=== PATIENT | female | born 1960 | race Caucasian/White ===

== ENCOUNTER 2020-12-14 11:26 | Emergency (ER) | payer BC, SELFPAY ==
[2020-12-14 11:27] VITALS: BP 141/88; PULSE 85; RESP 16; TEMP 36.1; O2SAT 97; BMI 23.6
--- NOTE | 2020-12-14 11:48 | CT_ITS ---
STUDY: CT ABDOMEN AND PELVIS WITHOUT CONTRAST REASON FOR EXAM: Female, 60 years old. LT FLANK PAIN since Monday. N/v RADIATION DOSAGE (If Supplied By Facility): CTDIvol = ( 6.29 ) mGy, DLP = ( 336.53 ) mGycm TECHNIQUE: Transaxial images were obtained from the dome of the diaphragm to the symphysis pubis without oral contrast, and without intravenous contrast. Sagittal and coronal images were reconstructed. Individualized dose optimization techniques were used for this CT. COMPARISON: None. FINDINGS: Minimal degree of bibasilar atelectasis. The visualized portions of the heart are within normal limits. There is a 1.3 cm x 0.8 cm well-defined hypodensity in the anterior aspect of the right lobe of the liver in the region of the dome of the liver. The patient is status post cholecystectomy. Normal spleen. Normal pancreas. Normal bilateral adrenal glands. Normal right kidney. 3 mm calculus in the upper pole of the left kidney. Mild degree of left hydronephrosis and hydroureter due to a 4.3 mm calculus in the distal portion of the left ureter just proximal to the ureterovesical junction. There is a small hiatal hernia. Normal small intestine. Normal colon. The appendix is visualized and appears normal. Normal abdominal aorta. Normal inferior vena cava. Normal retroperitoneum. Normal urinary bladder. Normal abdominal wall. Normal osseous structures. CT/Abdomen/Pelvis without Cont IMPRESSION: Mild left hydronephrosis and hydroureter due to a 4.3 mm calculus in the distal portion of the left ureter just proximal to the ureterovesical junction. 1.3 cm x 0.8 some well-defined hypodensity in the anterior aspect of the right lobe of the liver in the region of the dome. Electronically Signed: Abram Manrique MD at 13:07 EST , Service support ,
[2020-12-14] MEDS: 0.9% Normal Saline 1,000 ML 1000 ML IV (12:06)
--- NOTE | 2020-12-14 12:19 | ED.DCSUM_ITS ---
- ER Visit Summary Date of Service: 12/14/20 Chief Complaint: Left flank pain History of Present Illness: The patient is a 60 F who presents with left flank pain that has been getting worse over the past 3 days. Patient states it has been waxing and waning. Patient states it became worse again today. Patient started having some nausea and vomiting today. Patient denies any hematemesis or coffee-ground emesis. Patient denies any melena or hematochezia. Patient describes her pain as aching and throbbing. Patient states it is localized to the left flank area. Patient denies any dysuria or hematuria. Patient admits to subjective chills but denies any fevers. Physical Examination: Vital signs are stable. Patient is afebrile. Patient is in no acute distress. Oral mucosa is pink and moist. Neck is supple. Trachea is midline. There is no JVD. Heart was regular rate and rhythm. Lungs are clear and equal bilateral. Abdomen is soft. Bowel sounds are normal. There is some left CVA tenderness. There is no anterior abdominal tenderness. There is no rebound or guarding noted. Cranial nerves II through XII are intact. There are no focal motor or sensory deficits noted. Extremities are intact. There is no calf tenderness or edema. Test Results: CBC and comprehensive metabolic profile were within normal limits. Urinalysis shows leukocyte esterase of 100 and occult blood of 250. There were 5-10 white blood cells and 50-[address] scan of the abdomen and pelvis was obtained. There is a 4.3 mm calculus in the left distal ureter. There is some hydronephrosis and hydroureter. This was interpreted by the radiologist and reviewed by myself. Emergency Department Course and Treatment: Patient was given IV fluids. Patient is feeling better on reevaluation. Patient was given a prescription for a short course of Mchenry to take as needed. Patient was instructed to follow-up with her primary care physician in 5 to 7 days. Patient understood and was agreeable with the plan. All questions were answered. Disposition: Discharge home Impression: Left distal ureteral calculus This note was generated with [email or web address] software. It may contain incorrect words, spelling, and punctuation that were not noted in review of the chart prior to signing ED Disposition - Plan for ED Patient: Disposition: Home or Assisted Living Diagnosis: Calculus of distal left ureter Instructions: ED Kidney Stone w/ Colic Prescriptions: Hydrocodone Bitart/Apap 5-325 [Mchenry 5MG-325MG] 1 tab PO Q6H PRN PRN 3 Days #10 tab PRN Reason: Pain Prescription Printed Referrals: Pieter Landry III, MD [Primary Care Provider] - 3-5 Days
[2020-12-14 12:20] LABS: Absolute Lymphocyte Count 0.66 X10^3/uL (0.83-4.51); Absolute Neutrophil Count 9.9 X10^3/uL (2.0-7.7); Basophil# 0.03 X10^3/uL; Basophil% 0.3 % (0-1); Eosinophil# 0.01 X10^3/uL; Eosinophils% 0.1 % (0-5); Hematocrit 44.7 % (37-47); Hemoglobin 14.7 g/dL (12.0-15.0); Lymphocyte # 0.66 X10^3/ul (4.0); Mean Corp Hgb Conc 32.9 g/dL (32-36); Mean Corpuscular Hgb 29.9 pg (27.0-32.0); Mean Corpuscular Volume 90.9 fL (81-99); Mean Platelet Vol. 11.5 fl (6.2-12.0); Monocyte% 3.6 % (0-10); NRBC Flagged by Analyzer 0 % (0-5); Neutrophil # 9.86 X10^3/uL (2.7-7.7); Neutrophil % 89.6 % (47-70); Platelet Count 327 K/mm3 (150-450); RBC Distribution Width CV 12.8 % (11.6-14.6); RBC Distribution Width SD 42.4 fl (35.1-43.9); Red Blood Count 4.92 M/mm3 (4.2-5.4)
[2020-12-14 12:22] LABS: Mucous, Urine 0 SEEN /hpf (<or=2+)
[2020-12-14 12:24] LABS: Color, Urine Yellow (Yellow); Glucose, Dipstick Normal (Normal); Ketone-Dipstick 5 mg/dl (Negative); Leukocyte Esterase-Dipstick 100 /ul (Negative); Nitrite-Dipstick Negative (Negative); Occult Blood-Urine 250 /ul (Negative); Protein-Dipstick 30 mg/dl (Negative); Specific Gravity, Urine 1.025 (1.002-1.030); Urine Bilirubin Dipstick Negative (Negative); Urine Clarity Cloudy (Clear); Urine Urobilinogen Normal (Normal)
[2020-12-14 12:33] LABS: Bacteria 1+ /hpf (None Seen); Red Blood Cells-Urine 50-100 SEEN /hpf (0-5); Squamous Epithelial Cells - UA 5-10 SEEN /hpf (5-10); White Blood Cells 5-10 SEEN /hpf (0-5)
[2020-12-14 12:34] LABS: Calcium Oxalate Crystals Ur 2+ /hpf (<or=2+)
[2020-12-14 12:41] LABS: ALB/GLOB Ratio 1.2 RATIO (0.9-2.4); AST(SGOT) 20 U/L (15-37); Alanine Aminotransfer ALT/SGPT 56 U/L (13-56); Albumin, Serum 4.2 g/dL (3.2-5.0); Alkaline Phosphatase 115 U/L (45-117); Anion Gap 8 (5-15); BUN 23 mg/dL (7-18); BUN/Creat Ratio 22.1 RATIO (10-20); Calcium,Total 9.9 mg/dL (8.5-10.1); Chloride 107 mmol/L (98-107); Creatinine, Serum 1.04 mg/dL (0.55-1.02); EST Glomerular Filtration Rate 57 mL/min (>60); Est Glom Filt Rate - Afr Amer 70 mL/min (>60); Estimated Creatinine Clearance 51.76 ml/min; Globulin 3.6 g/dL (2.2-4.2); Glucose 149 mg/dL (74-106); Potassium 3.8 mmol/L (3.5-5.1); Protein, Total 7.8 g/dL (6.4-8.2); Sodium Level 141 mmol/L (136-145)
[2020-12-14 14:11] VITALS: BP 127/68; PULSE 90; RESP 16; RESP 19; O2SAT 97
== END 2020-12-14 14:12 | disposition home or self-care (01) ==
PROVIDERS: Emergency Provider Emergency Medicine; PCP Family Medicine
DX: N20.1 Calculus of ureter (principal)
CPT/HCPCS: 74176; 80053; 81001; 85025; 96360; 96361; 99283; J7030; A4216

== ENCOUNTER 2022-04-08 19:28 | Emergency (ER) | payer BC, SELFPAY ==
[2022-04-08 19:29] VITALS: BP 170/84; PULSE 91; RESP 18; TEMP 36.6; O2SAT 98; BMI 24.1
--- NOTE | 2022-04-08 19:45 | EDS_ITS ---
HPI History of Present Illness Chief Complaint: Abd Pain Narrative Narrative: 61-year-old female presenting with abdominal cramping and bloating as well as muscle spasms in the right hamstring and thigh. Patient states that yesterday she had a colonoscopy after bowel prep with [facility]. She states that her bowel prep and colonoscopy went well. She states that today she ate oatmeal for breakfast and then later ate pizza. Today she started to have some bloating and cramping in her abdomen. She has not had a return of diarrhea. No black or bloody stools. Patient states that she has been experiencing muscle spasms in her right thigh and hamstring since last night. She states that this is improved by getting up and walking and is worse by trying to lay flat. She denies any trauma. No history of back problems. PFSH PFS Medical History no medical history Home Medications NK 04/08/22 [History Last Taken Unknown] Allergy/AdvReac Type Severity Reaction Status Date / Time No Known Allergies Allergy Verified 04/08/22 19:31 Social History Smoking Status: Never smoker ROS ROS ED Constitutional Constitutional ED: Denies chills or fever(s) Eyes Eyes: Denies blurry vision or diplopia ENT ENT ED: Denies rhinorrhea or sore throat Cardiovascular Cardiovascular: Denies chest pain or palpitations Respiratory/Chest Respiratory/Chest: Denies cough or dyspnea Gastrointestinal Gastrointestinal: Reports abdominal pain; Denies diarrhea, nausea or vomiting Genitourinary Genitourinary ED: Denies dysuria or hematuria Musculoskeletal Musculoskeletal: Reports other Details: Right hamstring and thigh muscle spasm ; Denies back pain Integumentary Denies rash Neurologic Neurologic: Denies headache(s) or weakness Psychiatric Psychiatric: Denies anxiety or depression EXAM Physical Exam Const Vital Signs: 04/08/22 19:29 04/08/22 19:46 04/08/22 21:16 Temperature 98 F Temperature Source Temporal Pulse Rate 91 78 Respiratory Rate 18 15 Blood Pressure 170/84 H 138/69 H Blood Pressure Mean 112 92 Pulse Ox 98 96 Oxygen Delivery Method Room Air Room Air Room Air Positive well nourished General Appearance ED: NAD; Negative for pallor HEENT Reports moist mucous membranes Negative for trauma Eyes PERRL and EOMs intact bilaterally Chest Wall inspection of chest normal Resp normal respiratory effort and clear to auscultation bilaterally Cardio regular rate and regular rhythm GI normal to inspection, nondistended, normoactive bowel sounds Back/Spine no CVA tenderness Cervical Spine: Negative for cervical spine tenderness Thoracic Spine / Upper Back: Negative for thoracic spinal tenderness or paraspinal muscle tenderness Lumbar Spine / Lower Back: Negative for lumbar spinal tenderness Extremity normal to inspection General Extremety ED: Negative for edema or tenderness General Extremity: Negative for edema Neuro oriented x3, CN's II-XII intact bilaterally and no sensory deficits noted Sensorium / Orientation: alert Motor Exam: strength 5/5 throughout Psych mental status grossly normal Skin no rashes or lesions noted and no wounds General Skin Exam: Negative for jaundice or pallor MDM MDM MDM Narrative Medical decision making narrative: Patient given IV fluids. I will check her electrolytes. I suspect either she is slightly dehydrated or her electrolytes are off due to the bowel prep. Patient's abdominal exam is benign, and I suspect that her bloating and cramping is from the oatmeal and pizza that she ate today after going a day without eating and having a bowel prep. I am not able to reproduce any pain in the right hamstring or thigh. CBC and CMP are unremarkable. Urinalysis is negative for infection. Patient given a liter of IV fluids and feels well at this time. Since her electrolytes normal and she is not dehydrated I feel she safe to be discharged home. Again her abdominal exam is benign. I suspect that this is likely due to eating oatmeal and pizza today after being n.p.o. with just liquids. Patient agrees and she is comfortable being discharged home. She was given return precautions. Impression: 1. Abdominal pain unknown cause 2. Muscle spasms Lab Data Labs: Laboratory Results - last 24 hr 04/08/22 04/08/22 04/08/22 19:50 19:50 19:50 WBC 7.0 RBC 4.75 Hgb 14.0 Hct 42.7 MCV 89.9 MCH 29.5 MCHC 32.8 RDW Std Deviation 40.9 RDW Coeff of [place] 12.3 Plt Count 371 MPV 11.3 Immature Gran % (Auto) 0.100 Neut % (Auto) 47.5 Lymph % (Auto) 39.7 [place] % (Auto) 10.4 H Eos % (Auto) 1.9 Baso % (Auto) 0.4 Absolute Neuts (auto) 3.3 Absolute Lymphs (auto) 2.79 Nucleated RBC % 0 Sodium 142 Potassium 3.8 Chloride 110 H Carbon Dioxide 28.0 Anion Gap 4 L BUN 14 Creatinine 0.84 Estim Creat Clear Calc 63.29 Est GFR (MDRD) Af Amer 89 Est GFR (MDRD) Non-Af 74 BUN/Creatinine Ratio 16.7 Glucose 132 H Calcium 9.7 Magnesium 2.3 Total Bilirubin 0.30 AST 18 ALT 37 Alkaline Phosphatase 99 Total Protein 7.3 Albumin 4.0 Globulin 3.3 Albumin/Globulin Ratio 1.2 Urine Color Yellow Urine Clarity Sl. Cloudy Urine pH 6.5 Ur Specific Clever 1.010 Urine Protein Negative Urine Glucose (UA) Normal Urine Ketones Negative Urine Occult Blood Negative Urine Nitrite Negative Urine Bilirubin Negative Urine Urobilinogen Normal Ur Leukocyte Esterase 25 H Urine RBC 0 SEEN Urine WBC 0-5 SEEN Ur Squamous Epith Cells 0-5 SEEN Amorphous Sediment 1+ URATE Urine Bacteria 0 SEEN Urine Mucus 0 SEEN Discharge Plan Triage Chief Complaint: Abd Pain ED Provider: Roman Brown Dx/Rx/DC Orders Instructions: ED Abdominal Pain Unkn Cause Fem, ED Leg Spasm Prescriptions: No Action NK RF: 0 Primary Care Provider: Ronal Duval Referrals: Ronal Duval [Primary Care Provider] - Disposition Disposition: Home, Self Care
[2022-04-08 20:21] LABS: Absolute Lymphocyte Count 2.79 X10^3/uL (0.83-4.51); Absolute Neutrophil Count 3.3 X10^3/uL (2.0-7.7); Basophil# 0.03 X10^3/uL; Basophil% 0.4 % (0-1); Eosinophil# 0.13 X10^3/uL; Eosinophils% 1.9 % (0-5); Hematocrit 42.7 % (37-47); Lymphocyte # 2.79 X10^3/ul (0.83-4.51); Lymphocyte % 39.7 % (19-41); Mean Corp Hgb Conc 32.8 g/dL (32-36); Mean Corpuscular Hgb 29.5 pg (27.0-32.0); Mean Corpuscular Volume 89.9 fL (81-99); Mean Platelet Vol. 11.3 fl (6.2-12.0); Monocyte# 0.73 X10^3/uL; Monocyte% 10.4 % (0-10); NRBC Flagged by Analyzer 0 % (0-5); Neutrophil # 3.33 X10^3/uL (2.7-7.7); Neutrophil % 47.5 % (47-70); Platelet Count 371 K/mm3 (150-450); RBC Distribution Width CV 12.3 % (11.6-14.6); RBC Distribution Width SD 40.9 fl (35.1-43.9); Red Blood Count 4.75 M/mm3 (4.2-5.4)
[2022-04-08] MEDS: 0.9% Normal Saline 1,000 ML 1000 ML IV (20:23)
[2022-04-08 20:28] LABS: Bacteria 0 SEEN /hpf (None Seen); Mucous, Urine 0 SEEN /hpf (<or=2+); Red Blood Cells-Urine 0 SEEN /hpf (0-5)
[2022-04-08 20:29] LABS: Color, Urine Yellow (Yellow); Glucose, Dipstick Normal (Normal); Ketone-Dipstick Negative (Negative); Leukocyte Esterase-Dipstick 25 /ul (Negative); Nitrite-Dipstick Negative (Negative); Occult Blood-Urine Negative /ul (Negative); Protein-Dipstick Negative (Negative); Urine Bilirubin Dipstick Negative (Negative); Urine Clarity Sl. Cloudy (Clear); Urine Urobilinogen Normal (Normal); Urine pH 6.5 (5.0 - 8.0)
[2022-04-08 20:33] LABS: ALB/GLOB Ratio 1.2 RATIO (0.9-2.4); AST(SGOT) 18 U/L (15-37); Alanine Aminotransfer ALT/SGPT 37 U/L (13-56); Alkaline Phosphatase 99 U/L (45-117); Anion Gap 4 (5-15); BUN 14 mg/dL (7-18); BUN/Creat Ratio 16.7 RATIO (10-20); Calcium,Total 9.7 mg/dL (8.5-10.1); Chloride 110 mmol/L (98-107); Creatinine, Serum 0.84 mg/dL (0.55-1.02); EST Glomerular Filtration Rate 74 mL/min (>60); Est Glom Filt Rate - Afr Amer 89 mL/min (>60); Estimated Creatinine Clearance 63.29 ml/min; Globulin 3.3 g/dL (2.2-4.2); Glucose 132 mg/dL (74-106); Magnesium 2.3 mg/dL (1.6-2.6); Potassium 3.8 mmol/L (3.5-5.1); Protein, Total 7.3 g/dL (6.4-8.2); Sodium Level 142 mmol/L (136-145)
[2022-04-08 20:47] LABS: Amorphous Sediment 1+ URATE; Squamous Epithelial Cells - UA 0-5 SEEN /hpf (5-10); White Blood Cells 0-5 SEEN /hpf (0-5)
[2022-04-08 21:16] VITALS: BP 138/69; PULSE 78; RESP 15; O2SAT 96
[2022-04-08 22:10] VITALS: BP 151/79; PULSE 88; RESP 15; O2SAT 96
== END 2022-04-08 22:11 | disposition home or self-care (01) ==
PROVIDERS: Emergency Provider Student in an Organized Health Care Education/Training Program; Visit Provider Student in an Organized Health Care Education/Training Program
DX: R10.9 Unspecified abdominal pain (principal); M62.838 Other muscle spasm
CPT/HCPCS: 80053; 81001; 83735; 85025; 96360; 96361; 99284; J7030; A4216